=== PATIENT | female | born 1995 | race Two or more races ===

== ENCOUNTER 2017-05-26 11:29 | Emergency (ER) | payer MEDICAID ==
[~2017-05-26] VITALS: Ht 154.9 cm; Wt 83.5 kg
[2017-05-26 11:34] VITALS: BP 125/78
[2017-05-26] MEDS ORDERED: ONDANSETRON 4 MG TAB.RAPDIS SL ONE (13:00)
[2017-05-26] MEDS ORDERED: ACETAMINOPHEN 325 MG TABLET PO ONE (13:00)
[2017-05-26] MEDS ORDERED: ACETAMINOPHEN ES 500 MG TABLET ONE (13:00)
[2017-05-26] MEDS ORDERED: ONDANSETRON 4 MG TAB.RAPDIS ONE (13:00)
== END 2017-05-26 13:14 | disposition home or self-care (01) ==
LOC: ER 11:32
DX: B34.9 Viral infection, unspecified (principal)
CPT/HCPCS: 99283; A4606; Q0162; Z7610

== ENCOUNTER 2021-07-18 12:58 | Emergency (ER) | payer OTHER ==
[~2021-07-18] VITALS: Ht 154.9 cm; Wt 92.1 kg
[2021-07-18 13:35] VITALS: BP 136/90
[2021-07-18] MEDS ORDERED: IBUP-1955 PO (16:02)
[2021-07-18] MEDS ORDERED: METH-649 PO (16:02)
== END 2021-07-18 16:10 | disposition home or self-care (01) ==
LOC: ER 13:26
DX: S16.1XXA Strain of muscle, fascia and tendon at neck level, initial encounter (principal); S39.012A Strain of muscle, fascia and tendon of lower back, initial encounter; R51.9 Headache, unspecified; Z88.2 Allergy status to sulfonamides; Z79.1 Long term (current) use of non-steroidal anti-inflammatories (NSAID); Z79.899 Other long term (current) drug therapy; W18.09XA Striking against other object with subsequent fall, initial encounter; Y93.89 Activity, other specified; Y92.219 Unspecified school as the place of occurrence of the external cause; Y99.0 Civilian activity done for income or pay

== ENCOUNTER 2021-07-20 12:25 | Emergency (ER) | payer OTHER ==
[~2021-07-20] VITALS: Ht 154.9 cm; Wt 92.1 kg
[2021-07-20 12:25] VITALS: BP 122/65
[~2021-07-20 12:25] MED LIST: IBUP-1955 PO; METH-649 PO
[2021-07-20] MEDS ORDERED: HYDR-4303 PO (12:43)
[2021-07-20] MEDS ORDERED: CARI350T PO (12:43)
--- NOTE | 2021-07-20 12:53 | NUR ---
Patient discharged to home in stable condition. Written and verbal after care instructions given. Patient verbalizes understanding of instruction.
== END 2021-07-20 12:55 | disposition home or self-care (01) ==
LOC: ER 12:32
DX: S39.012A Strain of muscle, fascia and tendon of lower back, initial encounter (principal); Z88.2 Allergy status to sulfonamides; Z79.1 Long term (current) use of non-steroidal anti-inflammatories (NSAID); Z79.899 Other long term (current) drug therapy; W07.XXXA Fall from chair, initial encounter; Y93.89 Activity, other specified; Y92.89 Other specified places as the place of occurrence of the external cause; Y99.8 Other external cause status